=== PATIENT | male | born 1960 | race African-American/Black ===

== ENCOUNTER 2016-12-09 11:32 | Inpatient (IN) | payer OTHER ==
[2016-12-09 12:19] VITALS: BMI 22.2
--- NOTE | 2016-12-09 17:51 | HP ---
COWS - Scale Resting Pulse: 1= [place] 81-100 Sweatin= Chills/Flushing Restless Observation: 1= Difficult to Sit Still Pupil Size: 1= Pupils >than Normal Bone or Joint Aches: 2= Severe Diffuse Aches Runny Nose/ Eye Tearin= Nasal Congestion GI Upset > 30mins: 2= Nausea/Diarrhea Tremor Observation: 1= Tremor [place], Not Seen Yawning Observation: 2= >3x During Session Anxiety or Irritability: 2=Irritable/Anxious Goose Flesh Skin: 0=Smooth Skin COWS Score: 14 CIWA Score - CIWA Score Nausea/Vomitin Muscle Tremors: 2 Anxiety: 3 Agitation: 3 Paroxysmal Sweats: 3 Orientation: 0-Oriented Tacttile Disturbances: 2-Mild Itch/Numbness/Burn Auditory Disturbances: 0-None Visual Disturbances: 0-None Headache: 0-None Present CIWA-Ar Total Score: 16 Admission ROS BHS - HPI Chief Complaint: I need to stop getting high i need help Allergies/Adverse Reactions: Allergies Allergy/AdvReac Type Severity Reaction Status Date / Time No Known Allergies Allergy Verified 12/09/16 17:37 History of Present Illness: 56 y/o m pt with a h/o heroin and alcohol dep. seeking detox. Exam Limitations: No Limitations - Ebola screening Have you traveled outside of the country in the last 21 days: No Have you had contact with anyone from an Ebola affected area: No Have you been sick,other than usual withdrawal symptoms: No Do you have a fever: No - Review of Systems Constitutional: Malaise, Night Sweats, Changes in sleep EENT: reports: Blurred Vision, Dental Problems Respiratory: reports: No Symptoms reported Cardiac: reports: No Symptoms Reported GI: reports: Nausea, Abdominal cramping : reports: Urgency Musculoskeletal: reports: Joint Pain, Muscle Pain Integumentary: reports: No Symptoms Reported Neuro: reports: Tremors, Weakness Endocrine: reports: No Symptoms Reported Hematology: reports: No Symptoms Reported Psychiatric: reports: Anxious, Depressed Other Systems: Reviewed and Negative Patient History - Patient Medical History Hx Anemia: No Hx Asthma: No Hx Chronic Obstructive Pulmonary Disease (COPD): No Hx Cancer: No Hx Cardiac Disorders: No Hx Congestive Heart Failure: No Hx Hypertension: No Hx Hypercholesterolemia: No Hx Pacemaker: No HX Cerebrovascular Accident: No Hx Seizures: No Hx Dementia: No Hx Diabetes: No Hx Gastrointestinal Disorders: No Hx Liver Disease: No Hx Genitourinary Disorders: Yes (bph ) Hx Sexually Transmitted Disorders: No Hx Renal Disease (ESRD): No Hx Thyroid Disease: No Hx Human Immunodeficiency Virus (HIV): No Hx Hepatitis C: No Hx Depression: Yes Hx Suicide Attempt: No Hx Schizophrenia: No - Patient Surgical History Past Surgical History: Yes Hx Abdominal Surgery: Yes (umbilical hernia repair) Anesthesia Reaction: No - PPD History Previous Implant?: Yes Documented Results: Negative w/o proof Implanted On Prior [facility] Admission?: No - Reproductive History Patient is a Female of Child Bearing Age (11 -55 yrs old): No - Smoking Cessation Smoking history: Current every day smoker Have you smoked in the past 12 months: Yes Aproximately how many cigarettes per day: 10 Hx Chewing Tobacco Use: No Initiated information on smoking cessation: Yes 'Breaking Loose' booklet given: 12/09/16 - Substance & Tx. History Hx Alcohol Use: Yes Hx Substance Use: Yes Substance Use Type: Alcohol, Heroin Hx Substance Use Treatment: Yes - Substances Abused Heroin Route: Inhalation Frequency: Daily Amount used: 4 bags Age of first use: 38 Date of Last Use: 12/09/16 Alcohol Route: Oral Frequency: Daily Amount used: 12 beers/ 1/2 pint Age of first use: 21 Date of Last Use: 12/08/16 Marijuana/Hashish Route: Smoking Frequency: Daily Amount used: 3-4 blunts Age of first use: 18 Date of Last Use: 12/08/16 Crack Route: Smoking Frequency: Daily Amount used: 4 grams Age of first use: 31 Date of Last Use: 12/08/16 Family Disease History - Family Disease History Family History: Denies Admission Physical Exam S - Vital Signs Vital Signs: Vital Signs - 24 hr 12/09/16 12:17 Temperature 96 F L Pulse Rate 58 L Respiratory 20 Rate Blood Pressure 138/93 56 y/o thin m pt irritable, uncomfortable ,bending over but cooperating with exam. - Physical General Appearance: Yes: Appropriately Dressed, Thin, Tremorous, Irritable, Sweating, Anxious HEENTM: Yes: EOMI, Hearing grossly Normal, Normocephalic, Normal Voice, LINDA, Nasal Congestion Respiratory: Yes: Lungs Clear, Normal Breath Sounds, No Respiratory Distress Neck: Yes: Supple, Trachea in good position Breast: Yes: Within Normal Limits Cardiology: Yes: Regular Rhythm, Regular Rate, S1, S2 Abdominal: Yes: Non Tender, Flat, Soft, Increased Bowel Sounds, Surgical Scar ( mild line well healed umbilical sccar) Genitourinary: Yes: Hesitency Back: Yes: Decreased Range of Motion, Muscle Spasm Musculoskeletal: Yes: Joint Stiffness, Muscle Pain Extremities: Yes: Tremors Neurological: Yes: controlled atmospheric furnace brazer II-XII NML intact, Fully Oriented, Alert, Motor Strength 5/5, Normal Response, Finger to Nose Integumentary: Yes: Moist Lymphatic: Yes: Within Normal Limits - Diagnostic (1) Opioid dependence with withdrawal Current Visit: Yes Status: Chronic (2) Alcohol dependence with uncomplicated withdrawal Current Visit: Yes Status: Chronic (3) BPH (benign prostatic hyperplasia) Current Visit: Yes Status: Chronic Qualifiers: Prostatic enlargement morphology: unspecified morphology Lower urinary tract symptom presence: presence of symptoms unspecified Qualified Code(s ): N40.0 - Benign prostatic hyperplasia without lower urinary tract symptoms (4) Nicotine dependence Current Visit: Yes Status: Chronic Qualifiers: Nicotine product type: cigarettes Substance use status: uncomplicated Qualified Code(s): F17.210 - Nicotine dependence, cigarettes, uncomplicated (5) Depression Current Visit: Yes Status: Chronic Qualifiers: Depression Type: unspecified Qualified Code(s): F32.9 - Major depressive disorder, single episode, unspecified Cleared for Admission S - Detox or Rehab [facility] Level of Care: Medically Managed Detox Regimen/Protocol: Methadone/Librium [facility] Breath Alcohol Content Breath Alcohol Content: 0 Urine Drug Screen - Results Drug Screen Negative: No Urine Drug Screen Results: THC-Marijuana, NILES-Cocaine, OPI-Opiates, MTD- Methadone
[2016-12-09] MEDS ORDERED: hydrOXYzine PAMOATE 25 MG CAPSULE (FP) PO PRN (18:03)
[2016-12-09] MEDS ORDERED: guaiFENesin/D-METHORPHAN HB 10 ML UNIT-DOSE CUPS PO PRN (18:03)
[2016-12-09] MEDS ORDERED: MAGNESIUM CITRATE 300 ML BOTTLE PO PRN (18:03)
[2016-12-09] MEDS ORDERED: P-EPHED 60MG/TRIPROLIDI 2.5MG TABLET PO PRN (18:03)
[2016-12-09] MEDS ORDERED: chlordiazePOXIDE HCL 25 MG CAPSULE PO PRN (18:03)
[2016-12-09] MEDS ORDERED: NICOTINE POLACRILEX 4 MG GUM BUC PRN (18:03)
[2016-12-09] MEDS ORDERED: MAG HYDROX/AL HYDROX/SIMETH 30 ML UNIT-DOSE CUP PO PRN (18:03)
[2016-12-09] MEDS ORDERED: MAGNESIUM HYDROX 2400MG/30ML ORAL SUSPENSION 30 ML CUP PO PRN (18:03)
[2016-12-09] MEDS ORDERED: METHADONE HCL 10 MG TABLET (FOR DETOX USE ONLY) PO ONE ×2 (18:03→23:00)
[2016-12-09] MEDS ORDERED: ACETAMINOPHEN 325 MG TABLET (FP) PO PRN (18:03)
[2016-12-09] MEDS ORDERED: IBUPROFEN 400 MG TABLET (FP) PO PRN (18:03)
[2016-12-09] MEDS ORDERED: MENTHOL/PHENOL 1 EACH UD MM PRN (18:03)
[2016-12-09] MEDS ORDERED: LOPERAMIDE HCL 2 MG CAPSULE PO PRN (18:03)
[2016-12-09] MEDS: THIAMINE HCL 100 MG TABLET (FP) PO SCH (23:09)
[2016-12-09] MEDS: chlordiazePOXIDE HCL 25 MG CAPSULE PO SCH (23:09)
[2016-12-09] MEDS: diphenhydrAMINE HCL 50 MG CAPSULE PO PRN (23:09)
[2016-12-09 23:17] LABS: URINE APPEARANCE CLEAR; URINE BILIRUBIN NEGATIVE (NEGATIVE); URINE BLOOD NEGATIVE (NEGATIVE); URINE COLOR LTYELLOW; URINE GLUCOSE (UA) NEGATIVE (NEGATIVE); URINE KETONE NEGATIVE (NEGATIVE); URINE LEUK ESTERASE NEGATIVE (NEGATIVE); URINE NITRITE NEGATIVE (NEGATIVE); URINE PROTEIN NEGATIVE (NEGATIVE); URINE UROBILINOGEN 2.0 E.U/dl E.U./dl (0.2-1.0)
[2016-12-10] MEDS: chlordiazePOXIDE HCL 25 MG CAPSULE PO SCH ×4 (05:54→22:51)
[2016-12-10] MEDS ORDERED: METHADONE HCL 10 MG TABLET (FOR DETOX USE ONLY) PO SCH (10:00)
[2016-12-10 10:19] LABS: MCH 28.3 pg (25.7-33.7); MCHC 32.5 g/dl (32.0-35.9); MEAN PLT VOLUME 7.6 fl (7.5-11.1); PLATELET COUNT 291 K/MM3 (134-434); RDW 13.4 % (11.9-15.9); WHITE BLOOD COUNT 7.4 K/mm3 (4.0-10.0)
[2016-12-10 10:29] LABS: ALBUMIN 4.2 g/dl (3.4-5.0); ALK PHOS 47 U/L (45-117); ANION GAP 9 (8-16); BILIRUBIN,TOTAL 0.7 mg/dL (0.2-1.0); CALCIUM 8.9 mg/dL (8.5-10.1); CO2 28 mmol/L (21-32); COCKROFT - GAULT 79.43; CREATININE 1.2 mg/dL (0.7-1.3); GLUCOSE,RANDOM 111 mg/dL (74-106); SGOT/AST 20 U/L (15-37); SGPT/ALT 16 U/L (12-78); TOT PROT 7.2 g/dl (6.4-8.2)
[2016-12-10] MEDS: PRENATAL VITAMINS W/ FOLIC ACID TABLET (FP) PO SCH (11:07)
[2016-12-10] MEDS: TAMSULOSIN HCL 0.4 MG CAP.ER.24H (FP) PO SCH (11:07)
[2016-12-10] MEDS: NICOTINE 21 MG/24 HOURS TOPICAL PATCH TD SCH (11:10)
--- NOTE | 2016-12-10 11:16 | PN ---
S CIWA - CIWA Score Nausea/Vomitin-No Nausea/No Vomiting Muscle Tremors: 4-Moderate,w/Arms Extend Anxiety: 3 Agitation: 4-Moderately Restless Paroxysmal Sweats: 3 Orientation: 0-Oriented Tacttile Disturbances: 0-None Auditory Disturbances: 0-None Visual Disturbances: 0-None Headache: 0-None Present CIWA-Ar Total Score: 14 BHS COWS - Scale Resting Pulse: 0= [place] 80 or Below Sweatin=Flushed/Facial Moisture Restless Observation: 1= Difficult to Sit Still Pupil Size: 0= Normal to Room Light Bone or Joint Aches: 2= Severe Diffuse Aches Runny Nose/ Eye Tearin= Nasal Congestion GI Upset > 30mins: 2= Nausea/Diarrhea Tremor Observation of Outstretched Hands: 2= Slight Tremor Visible Yawning Observation: 1= 1-2x During Session Anxiety or Irritability: 2=Irritable/Anxious Goose Flesh Skin: 0=Smooth Skin COWS Score: 13 S Progress Note (SOAP) Subjective: tired sweats interrupted sleep body aches Objective: 12/10/16 11:15 Vital Signs Temperature 97.7 F 12/10/16 06:00 Pulse Rate 50 L 12/10/16 06:00 Respiratory Rate 18 12/10/16 06:00 Blood Pressure 134/76 12/10/16 06:00 O2 Sat by Pulse Oximetry (%) Laboratory Tests 12/09/16 12/10/16 12/10/16 23:02 06:00 06:00 WBC 7.4 RBC 4.56 Hgb 12.9 Hct 39.7 MCV 87.0 MCHC 32.5 RDW 13.4 Plt Count 291 MPV 7.6 Sodium 138 Potassium 3.8 Chloride 101 Carbon Dioxide 28 Anion Gap 9 BUN 11 Creatinine 1.2 Creat Clearance w eGFR > 60 Random Glucose 111 H Calcium 8.9 Total Bilirubin 0.7 AST 20 ALT 16 Alkaline Phosphatase 47 Total Protein 7.2 Albumin 4.2 Urine Color Ltyellow Urine Appearance Clear Urine pH 7.0 Ur Specific [place] 1.013 Urine Protein Negative Urine Glucose (UA) Negative Urine Ketones Negative Urine Blood Negative Urine Nitrite Negative Urine Bilirubin Negative Urine Urobilinogen 2.0 e.u/dl Ur Leukocyte Esterase Negative awake/alert ambulating no acute distress Assessment: 12/10/16 11:16 withdrawal sx Plan: continue detox increase fluids
--- NOTE | 2016-12-10 13:46 | EKG ---
Test Reason : Blood Pressure : / mmHG Vent. Rate : 047 BPM Atrial Rate : 047 BPM P-R Int : 172 ms QRS Dur : 088 ms QT Int : 512 ms P-R-T Axes : 063 044 -04 degrees QTc Int : 453 ms SINUS BRADYCARDIA MINIMAL VOLTAGE CRITERIA FOR LVH, MAY BE NORMAL VARIANT NONSPECIFIC ST AND T WAVE ABNORMALITY ABNORMAL ECG NO PREVIOUS ECGS AVAILABLE Confirmed by CHAYO SUAREZ MD ([id number]) on 12/10/2016 1:45:59 PM Referred By: Confirmed By:CHAYO SUAREZ MD
--- NOTE | 2016-12-10 14:19 | CONSULT ---
[facility] Psychiatric Consult - Data Date of interview: 12/10/16 Admission source: [facility] Identifying data: First admission to [facility] for this 56 y/o AA male seeking detox treatment,on ,for alcohol,cocaine,marijuana and cheroin dependence.Patient is single,a father of two,domiciled,unemployed and supported on odd jobs. Substance Abuse History: - Smoking Cessation. Smoking history: Current every day smoker. Have you smoked in the past 12 months: Yes. Aproximately how many cigarettes per day: 10. Hx Chewing Tobacco Use: No. Initiated information on smoking cessation: Yes. 'Breaking Loose' booklet given: 12/09/16. - Substance & Tx. History. Hx Alcohol Use: Yes. Hx Substance Use: Yes. Substance Use Type : Alcohol, Heroin. Hx Substance Use Treatment: Yes. - Substances Abused. Heroin. Route: Inhalation. Frequency: Daily. Amount used: 4 bags. Age of first use: 38. Date of Last Use: 12/09/16. Alcohol. Route: Oral. Frequency: Daily. Amount used: 12 beers/ 1/2 pint. Age of first use: 21. Date of Last Use: 12/08/16. Marijuana/Hashish. Route: Smoking. Frequency: Daily. Amount used: 3-4 blunts. Age of first use: 18. Date of Last Use: 12/08. Crack. Route: Smoking. Frequency: Daily. Amount used: 4 grams. Age of first use: 31. Date of Last Use: 12/08/16. Confirmed by patient. Medical History: History of benign prostatic hyperplasia and inguinal herniorraphy. Psychiatric History: No reported history of psychiatric hospitalizations.Patient sees a psychiatrist at the [facility] in [facility].Prescribed celexa 30 mg/day.Diagnosed with MDD/Anxiety Disorder.Patient denies history of suicide attempts. Physical/Sexual Abuse/Trauma History: Patient denies. Additional Comment: Urine Drug Screen Results: THC-Marijuana, NILES-Cocaine, OPI- Opiates, MTD-Methadone.Noted. Mental Status Exam - Mental Status Exam Alert and Oriented to: Time, Place, Person Cognitive Function: Good Patient Appearance: Well Groomed Mood: Withdrawn, Hopeful Affect: Appropriate, Normal Range Patient Behavior: Fatigued, Appropriate, Cooperative Speech Pattern: Clear, Appropriate Voice Loudness: Normal Thought Process: Goal Oriented Thought Disorder: Not Present Hallucinations: Denies Suicidal Ideation: Denies Homicidal Ideation: Denies Insight/Judgement: Poor Sleep: Poorly, Difficulty falling asleep (requests benadryl) Appetite: Good Muscle strength/Tone: Normal Gait/Station: Normal Psychiatric Findings - Problem List ([place] 1, 2,3) (1) Alcohol dependence with uncomplicated withdrawal Current Visit: Yes Status: Acute (2) Opioid dependence with withdrawal Current Visit: Yes Status: Acute (3) Nicotine dependence Current Visit: Yes Status: Acute Qualifiers: Nicotine product type: cigarettes Substance use status: uncomplicated Qualified Code(s): F17.210 - Nicotine dependence, cigarettes, uncomplicated (4) Cocaine dependence Current Visit: Yes Status: Acute (5) Marijuana dependence Current Visit: Yes Status: Acute (6) Depressive disorder Current Visit: Yes Status: Chronic Comment: History reported by patient. (7) BPH (benign prostatic hyperplasia) Current Visit: Yes Status: Chronic Qualifiers: Prostatic enlargement morphology: unspecified morphology Lower urinary tract symptom presence: presence of symptoms unspecified Qualified Code(s ): N40.0 - Benign prostatic hyperplasia without lower urinary tract symptoms - Initial Treatment Plan Initial Treatment Plan: Psychoeducation.Detoxification.Celexa 30 mg po daily.Side effects/benefits discussed with patient.Made aware,in particular,of the potential for suicidal ideation and sexual dysfunction.No report of adverse effects,in the past,from the use of that medication by the patient.He agrees with this careplan.Observation.Pharmacy claims are reviewed : noted filled script for celexa on 11/18/16 @ [facility].Scripts not necessary at discharge,as per patient (refills already available from [facility] provider).
[2016-12-10] MEDS: THIAMINE HCL 100 MG TABLET (FP) PO SCH (22:50)
[2016-12-11] MEDS: chlordiazePOXIDE HCL 25 MG CAPSULE PO SCH ×3 (05:24→17:51)
[2016-12-11] MEDS: TAMSULOSIN HCL 0.4 MG CAP.ER.24H (FP) PO SCH (09:30)
[2016-12-11] MEDS: CITALOPRAM HYDROBROMIDE 10 MG TABLET (FP) PO SCH (10:33)
[2016-12-11] MEDS: METHADONE HCL 5 MG TABLET (FOR DETOX USE ONLY) PO SCH (10:33)
[2016-12-11] MEDS: PRENATAL VITAMINS W/ FOLIC ACID TABLET (FP) PO SCH (10:33)
[2016-12-11] MEDS: NICOTINE 21 MG/24 HOURS TOPICAL PATCH TD SCH (10:34)
--- NOTE | 2016-12-11 12:46 | PN ---
S CIWA - CIWA Score Nausea/Vomitin Muscle Tremors: 3 Anxiety: 3 Agitation: 3 Paroxysmal Sweats: 1-Minimal Palms Moist Orientation: 0-Oriented Tacttile Disturbances: 1-Very Mild Itch/Numbness Auditory Disturbances: 1-Very Mild Visual Disturbances: 1-Very Mild Sensitivity Headache: 2-Mild CIWA-Ar Total Score: 18 BHS COWS - Scale Resting Pulse: 0= [place] 80 or Below Sweatin= Chills/Flushing Restless Observation: 3= Extraneous Movement Pupil Size: 1= Pupils >than Normal Bone or Joint Aches: 2= Severe Diffuse Aches Runny Nose/ Eye Tearin= Runny Nose/Eyes GI Upset > 30mins: 2= Nausea/Diarrhea Tremor Observation of Outstretched Hands: 2= Slight Tremor Visible Yawning Observation: 1= 1-2x During Session Anxiety or Irritability: 2=Irritable/Anxious Goose Flesh Skin: 0=Smooth Skin COWS Score: 16 BHS Progress Note (SOAP) Subjective: ALERT,IRRITABLE,ANXIOUS,TREMOR,PAIN IN THE BODY AND BACK,INTERRUPTED SLEEP Objective: 12/11/16 12:45 Laboratory Last Values WBC 7.4 K/mm3 (4.0-10.0) 12/10/16 06:00 RBC 4.56 M/mm3 (4.00-5.60) 12/10/16 06:00 Hgb 12.9 GM/dL (11.7-16.9) 12/10/16 06:00 Hct 39.7 % (35.4-49) 12/10/16 06:00 MCV 87.0 fl (80-96) 12/10/16 06:00 MCHC 32.5 g/dl (32.0-35.9) 12/10/16 06:00 RDW 13.4 % (11.9-15.9) 12/10/16 06:00 Plt Count 291 K/MM3 (134-434) 12/10/16 06:00 MPV 7.6 fl (7.5-11.1) 12/10/16 06:00 Sodium 138 mmol/L (136-145) 12/10/16 06:00 Potassium 3.8 mmol/L (3.5-5.1) 12/10/16 06:00 Chloride 101 mmol/L (98-107) 12/10/16 06:00 Carbon Dioxide 28 mmol/L (21-32) 12/10/16 06:00 Anion Gap 9 (8-16) 12/10/16 06:00 BUN 11 mg/dL (7-18) 12/10/16 06:00 Creatinine 1.2 mg/dL (0.7-1.3) 12/10/16 06:00 Creat Clearance w eGFR > 60 (>60) 12/10/16 06:00 Random Glucose 111 mg/dL (74-106) H 12/10/16 06:00 Calcium 8.9 mg/dL (8.5-10.1) 12/10/16 06:00 Total Bilirubin 0.7 mg/dL (0.2-1.0) 12/10/16 06:00 AST 20 U/L (15-37) 12/10/16 06:00 ALT 16 U/L (12-78) 12/10/16 06:00 Alkaline Phosphatase 47 U/L (45-117) 12/10/16 06:00 Total Protein 7.2 g/dl (6.4-8.2) 12/10/16 06:00 Albumin 4.2 g/dl (3.4-5.0) 12/10/16 06:00 Urine Color Ltyellow 12/09/16 23:02 Urine Appearance Clear 12/09/16 23:02 Urine pH 7.0 (5.0-8.0) 12/09/16 23:02 Ur Specific [place] 1.013 (1.001-1.035) 12/09/16 23:02 Urine Protein Negative (NEGATIVE) 12/09/16 23:02 Urine Glucose (UA) Negative (NEGATIVE) 12/09/16 23:02 Urine Ketones Negative (NEGATIVE) 12/09/16 23:02 Urine Blood Negative (NEGATIVE) 12/09/16 23:02 Urine Nitrite Negative (NEGATIVE) 12/09/16 23:02 Urine Bilirubin Negative (NEGATIVE) 12/09/16 23:02 Urine Urobilinogen 2.0 e.u/dl E.U./dl (0.2-1.0) 12/09/16 23:02 Ur Leukocyte Esterase Negative (NEGATIVE) 12/09/16 23:02 RPR Titer Nonreactive (NONREACTIVE) 12/10/16 06:00 LABS PENDING Assessment: 12/11/16 12:46 WITHDRAWAL SYMPTOM Plan: CONTINUE DETOX
[2016-12-11] MEDS: THIAMINE HCL 100 MG TABLET (FP) PO SCH (22:23)
[2016-12-11] MEDS: chlordiazePOXIDE 5 MG CAPSULE PO SCH (22:23)
[2016-12-11] MEDS: diphenhydrAMINE HCL 50 MG CAPSULE PO PRN (22:24)
[2016-12-12] MEDS: chlordiazePOXIDE 5 MG CAPSULE PO SCH ×3 (05:50→17:30)
[2016-12-12] MEDS: METHADONE HCL 5 MG TABLET (FOR DETOX USE ONLY) PO SCH (10:21)
[2016-12-12] MEDS: PRENATAL VITAMINS W/ FOLIC ACID TABLET (FP) PO SCH (10:21)
[2016-12-12] MEDS: CITALOPRAM HYDROBROMIDE 10 MG TABLET (FP) PO SCH (10:22)
[2016-12-12] MEDS: TAMSULOSIN HCL 0.4 MG CAP.ER.24H (FP) PO SCH (10:22)
[2016-12-12] MEDS: NICOTINE 21 MG/24 HOURS TOPICAL PATCH TD SCH (10:22)
--- NOTE | 2016-12-12 13:50 | PN ---
S Progress Note (SOAP) Subjective: ALERT,IRRITABLE,ANXIOUS,INTERRUPTED SLEEP,PAIN IN THE BODY AND BACK Objective: 12/12/16 13:49 Vital Signs Temperature 97.3 F L 12/12/16 10:22 Pulse Rate 52 L 12/12/16 10:22 Respiratory Rate 16 12/12/16 10:22 Blood Pressure 127/89 12/12/16 10:22 O2 Sat by Pulse Oximetry (%) Assessment: 12/12/16 13:49 WITHDRAWAL SYMPTOM Plan: CONTINUE DETOX
[2016-12-12] MEDS: chlordiazePOXIDE HCL 10 MG CAPSULE PO SCH (22:32)
[2016-12-12] MEDS: THIAMINE HCL 100 MG TABLET (FP) PO SCH (22:32)
[2016-12-12] MEDS: diphenhydrAMINE HCL 50 MG CAPSULE PO PRN (22:32)
[2016-12-13] MEDS: chlordiazePOXIDE HCL 10 MG CAPSULE PO SCH ×3 (05:26→17:33)
[2016-12-13] MEDS: TAMSULOSIN HCL 0.4 MG CAP.ER.24H (FP) PO SCH (09:11)
[2016-12-13] MEDS ORDERED: METHADONE HCL 10 MG TABLET (FOR DETOX USE ONLY) PO SCH (10:00)
--- NOTE | 2016-12-13 10:01 | PN ---
BHS Progress Note (SOAP) Subjective: sweats diarrhea Objective: 12/13/16 10:00 Vital Signs Temperature 97.7 F 12/13/16 06:00 Pulse Rate 55 L 12/13/16 06:00 Respiratory Rate 18 12/13/16 06:00 Blood Pressure 113/73 12/13/16 06:00 O2 Sat by Pulse Oximetry (%) awake/alert ambulating no acute distress Assessment: 12/13/16 10:00 withdrawal sx Plan: continue detox increase fluids d/c in am
[2016-12-13] MEDS: CITALOPRAM HYDROBROMIDE 10 MG TABLET (FP) PO SCH (10:22)
[2016-12-13] MEDS: PRENATAL VITAMINS W/ FOLIC ACID TABLET (FP) PO SCH (10:22)
[2016-12-13] MEDS: NICOTINE 21 MG/24 HOURS TOPICAL PATCH TD SCH (10:23)
[2016-12-13] MEDS: THIAMINE HCL 100 MG TABLET (FP) PO SCH (22:41)
[2016-12-13] MEDS: diphenhydrAMINE HCL 50 MG CAPSULE PO PRN (22:41)
[2016-12-14] MEDS ORDERED: METHADONE HCL 5 MG TABLET (FOR DETOX USE ONLY) PO SCH (06:00)
--- NOTE | 2016-12-14 08:48 | DS ---
[facility] Detox Discharge Summary Admission Date: 12/09/16 - Physical Exam Results Vital Signs: Vital Signs Temperature 98.1 F 12/14/16 06:00 Pulse Rate 52 L 12/14/16 06:00 Respiratory Rate 18 12/14/16 06:00 Blood Pressure 137/76 12/14/16 06:00 O2 Sat by Pulse Oximetry (%) - Treatment Hospital Course: Detox Protocol Followed, Detoxed Safely, Responded well, Discharged Condition Good - Medication Discharge Medications: Ambulatory Orders Citalopram Hydrobromide [Celexa -] 30 mg PO DAILY 12/09/16 Tamsulosin HCl [Flomax] 0.4 mg PO DAILY 12/09/16 - Diagnosis (1) Opioid dependence with withdrawal Current Visit: Yes Status: Chronic (2) Alcohol dependence with uncomplicated withdrawal Current Visit: Yes Status: Acute (3) BPH (benign prostatic hyperplasia) Current Visit: Yes Status: Chronic Qualifiers: Prostatic enlargement morphology: unspecified morphology Lower urinary tract symptom presence: presence of symptoms unspecified Qualified Code(s ): N40.0 - Benign prostatic hyperplasia without lower urinary tract symptoms (4) Nicotine dependence Current Visit: Yes Status: Chronic Qualifiers: Nicotine product type: cigarettes Substance use status: uncomplicated Qualified Code(s): F17.210 - Nicotine dependence, cigarettes, uncomplicated (5) Depression Current Visit: Yes Status: Chronic Qualifiers: Depression Type: unspecified Qualified Code(s): F32.9 - Major depressive disorder, single episode, unspecified - AMA Did Patient Leave Against Medical Advice: No
[2016-12-14] MEDS: TAMSULOSIN HCL 0.4 MG CAP.ER.24H (FP) PO SCH (08:55)
[2016-12-14 09:51] VITALS: BP 108/73; PULSE 69; TEMP 97.9
== END 2016-12-14 09:50 | disposition home or self-care (01) | DRG 773 ==
LOC: YASAS 11:32 → Y6N 18:02
PROVIDERS: ADMIT Internal Medicine Addiction Medicine; ATTEND Internal Medicine Addiction Medicine
PROC: HZ2ZZZZ Detoxification Services for Substance Abuse Treatment (ICD-10-PCS; principal; 2016-12-14)
DX: F11.23 Opioid dependence with withdrawal (principal); F10.230 Alcohol dependence with withdrawal, uncomplicated; F14.20 Cocaine dependence, uncomplicated; F12.20 Cannabis dependence, uncomplicated; F32.9 Major depressive disorder, single episode, unspecified; N40.0 Benign prostatic hyperplasia without lower urinary tract symptoms
CPT/HCPCS: 36415; 80053; 81003; 85027; 86593; 93005; 93010

== ENCOUNTER 2023-05-23 13:10 | Inpatient (IN) | payer OTHER ==
[2023-05-23 14:03] VITALS: BMI 23.0
[2023-05-23] MEDS ORDERED: NALOXONE HCL (KLOXXADO) 8 MG SPRAY NS PRN (14:43)
[2023-05-23] MEDS ORDERED: POLYETHYLENE GLYCOL (HEALTHYLAX) 3350 17 GM PACKET PO PRN (14:43)
[2023-05-23] MEDS ORDERED: MAG HYDROX/AL HYDROX/SIMETH 30 ML UNIT-DOSE CUP PO PRN (14:43)
[2023-05-23] MEDS ORDERED: MAGNESIUM HYDROX 2400MG/30ML ORAL SUSPENSION 30 ML CUP PO PRN (14:43)
[2023-05-23] MEDS ORDERED: ONDANSETRON *ODT* 4 MG TABLET SL PRN (14:43)
[2023-05-23] MEDS ORDERED: LOPERAMIDE HCL 2 MG CAPSULE PO PRN (14:43)
[2023-05-23] MEDS ORDERED: NALOXONE HCL 0.4 MG/ML VIAL IM PRN (14:43)
[2023-05-23] MEDS ORDERED: IBUPROFEN 400 MG TABLET (FP) PO PRN (14:43)
[2023-05-23] MEDS ORDERED: guaiFENesin 600 MG TABLET.ER (FP) PO PRN (14:43)
[2023-05-23] MEDS ORDERED: BENZONATATE 200 MG CAPSULE PO PRN (14:43)
[2023-05-23] MEDS ORDERED: ACETAMINOPHEN 325 MG TABLET (FP) PO PRN (14:43)
[2023-05-23] MEDS ORDERED: NICOTINE POLACRILEX 2 MG GUM BUC PRN (14:43)
[2023-05-23] MEDS ORDERED: BENZOCAINE/MENTHOL (CHLORASEPTIC ) LOZENGE MM PRN (14:43)
[2023-05-23] MEDS ORDERED: BISMUTH SUBSALICYLATE 262 MG/15 ML BTL PO PRN (14:43)
[2023-05-23] MEDS: MELATONIN 5 MG TABLETS PO SCH (23:07)
[2023-05-23] MEDS: THIAMINE HCL 100 MG TABLET (FP) PO SCH (23:10)
[2023-05-23] MEDS ORDERED: methaDONE HCL 10 MG TABLET (FOR DETOX USE ONLY) PO ONE (23:19)
[2023-05-23] MEDS: cloNIDine HCL 0.1 MG TABLET PO PRN (23:48)
[2023-05-24 09:31] LABS: POTASSIUM 4.4 mmol/L (3.5-5.1)
[2023-05-24 09:32] LABS: HEMATOCRIT 36.5 % (35.4-49); HEMOGLOBIN 11.9 GM/dL (11.7-16.9); MCH 28.6 pg (25.7-33.7); MCHC 32.6 g/dl (32.0-35.9); MEAN CELL VOLUME 87.7 fl (80-96); MEAN PLT VOLUME 7.2 fl (7.5-11.1); PLATELET COUNT 257 10^3/uL (134-434); RBC 4.16 M/mm3 (4.00-5.60); WHITE BLOOD COUNT 4.8 K/mm3 (4.0-10.0)
[2023-05-24] MEDS: cloNIDine HCL 0.1 MG TABLET PO PRN ×2 (09:32→17:27)
[2023-05-24] MEDS: PRENATAL VITAMINS W/ FOLIC ACID TABLET (FP) PO SCH (09:33)
[2023-05-24] MEDS: NICOTINE 14 MG/24 HOURS TOPICAL PATCH TD SCH (09:34)
[2023-05-24 09:44] LABS: CALCIUM 8.5 mg/dL (8.5-10.1)
[2023-05-24 09:46] LABS: ALBUMIN 3.1 g/dl (3.4-5.0); BLOOD UREA NITROGEN 15.6 mg/dL (7-18)
[2023-05-24 09:49] LABS: CREATININE 1.2 mg/dL (0.55-1.3)
[2023-05-24 09:50] LABS: BILIRUBIN,TOTAL 0.3 mg/dL (0.2-1)
[2023-05-24] MEDS: IBUPROFEN 600 MG TABLET (FP) PO PRN (17:28)
[2023-05-24] MEDS: MELATONIN 5 MG TABLETS PO SCH (22:08)
[2023-05-24] MEDS: THIAMINE HCL 100 MG TABLET (FP) PO SCH (22:08)
[2023-05-25] MEDS: IBUPROFEN 600 MG TABLET (FP) PO PRN ×2 (09:02→17:56)
[2023-05-25] MEDS: NICOTINE 14 MG/24 HOURS TOPICAL PATCH TD SCH (09:02)
[2023-05-25] MEDS: PRENATAL VITAMINS W/ FOLIC ACID TABLET (FP) PO SCH (09:02)
[2023-05-25] MEDS: cloNIDine HCL 0.1 MG TABLET PO PRN ×2 (09:03→17:56)
[2023-05-25] MEDS ORDERED: methaDONE HCL 10 MG TABLET (FOR DETOX USE ONLY) PO ONE (10:00)
[2023-05-25] MEDS ORDERED: hydrOXYzine PAMOATE 25 MG CAPSULE (FP) PO PRN (21:26)
[2023-05-25] MEDS: MELATONIN 5 MG TABLETS PO SCH (22:07)
[2023-05-25] MEDS: THIAMINE HCL 100 MG TABLET (FP) PO SCH (22:08)
[2023-05-26] MEDS: NICOTINE 14 MG/24 HOURS TOPICAL PATCH TD SCH (09:33)
[2023-05-26] MEDS: PRENATAL VITAMINS W/ FOLIC ACID TABLET (FP) PO SCH (09:34)
[2023-05-26] MEDS ORDERED: CITALOPRAM HYDROBROMIDE 20 MG TABLET PO SCH (10:00)
[2023-05-26 10:55] VITALS: PULSE 60; RESP 16
[2023-05-26 13:15] VITALS: BP 135/79; TEMP 97.5
[2023-05-26] MEDS ORDERED: MIRTAZAPINE 30 MG TABLET PO SCH (22:00)
[2023-05-27] MEDS ORDERED: methaDONE HCL 10 MG TABLET (FOR DETOX USE ONLY) PO ONE (10:00)
== END 2023-05-26 16:54 | disposition left against medical advice (07) | DRG 770 ==
LOC: YASAS 13:10 → Y6N 14:57
PROVIDERS: ADMIT Allergy & Immunology; ATTEND Surgery
PROC: HZ2ZZZZ Detoxification Services for Substance Abuse Treatment (ICD-10-PCS; principal; 2023-05-23)
DX: F11.23 Opioid dependence with withdrawal (principal); F14.20 Cocaine dependence, uncomplicated; F12.20 Cannabis dependence, uncomplicated; F17.210 Nicotine dependence, cigarettes, uncomplicated; F19.282 Other psychoactive substance dependence with psychoactive substance-induced sleep disorder; F19.280 Other psychoactive substance dependence with psychoactive substance-induced anxiety disorder; F19.24 Other psychoactive substance dependence with psychoactive substance-induced mood disorder; I10 Essential (primary) hypertension; N40.0 Benign prostatic hyperplasia without lower urinary tract symptoms
CPT/HCPCS: 36415; 80053; 85027; 86780; 87635; 93005; 93010